=== PATIENT | male | born 1990 | race Caucasian/White ===

== ENCOUNTER 2020-10-24 18:33 | Emergency (ER) | payer OTHER, SELFPAY ==
[2020-10-24 18:42] VITALS: BP 139/92; PULSE 78; RESP 18; TEMP 37; O2SAT 98; BMI 29.7
[2020-10-24 19:47] VITALS: BP 129/77; PULSE 83; RESP 18; TEMP 36.4; O2SAT 99
[2020-10-24 19:58] LABS: Glucose Urine UA NEG (NEG); Leukocyte Esterase Urine NEG (NEG); Nitrite Urine NEG (NEG); Specific Gravity - Urine 1.025 (1.005-1.025); Urine Blood NEG (NEG); Urine Ketones NEG (NEG); Urine Protein NEG (NEG-TRACE)
[2020-10-24 19:59] LABS: Appearance Urine CLEAR; Color Urine YELLOW
--- NOTE | 2020-10-24 21:12 | ED_ITS ---
HPI - General Adult General Chief complaint: Nausea/Vomiting/Diarrhea Stated complaint: Nausea/ tightness in chest Time Seen by Provider: 10/24/20 20:50 Source: patient Mode of arrival: ambulatory Limitations: no limitations History of Present Illness HPI narrative: 30-year-old male who presents emergency department for evaluation of chest pain, nausea, vomiting. Patient states the past 3 days he has been experiencing chest pain. He points to his anterior chest when asked to localize the pain. Describes the pain is a pressure-like pain which is worse with movement. The patient states that he had 1 episode of vomiting. He states he has had persistent nausea for the past 3 days. He denies fever, chills, shortness of breath, dyspnea on exertion, myalgias, arthralgias, changes bowel movements. He states he did take ibuprofen yesterday with some relief his pain he states that his pain is 8/10 at its worse and he has not been able to work since his job is very physical. This is his 1st episode of this type of pain. Related Data Allergies Allergy/AdvReac Type Severity Reaction Status Date / Time No Known Allergies Allergy Verified 10/24/20 18:46 Review of Systems Review of Systems: Yes all other systems are reviewed and are negative [facility] Past Medical History [facility] Narrative: Past medical history: None. Past surgical history: The patient had a hernia repair when he was 11 years old. 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 He denies tobacco, alcohol and drug use. Medical History (Updated 10/24/20 @ 18:45 by Chel Gill) No acute medical problems Surgical History (Updated 10/24/20 @ 18:45 by Chel Gill) H/O hernia repair Social History Social History Advance Directives: No Advance Directives Information Provided: Yes Physical Exam Vital Signs: Vital Signs: Last Vital Signs Temp 97.6 F 10/24/20 19:47 Pulse 83 10/24/20 19:47 Resp 18 10/24/20 19:47 BP 129/77 10/24/20 19:47 Pulse Ox 99 10/24/20 19:47 Body Mass Index 29.7 Const: General: cooperative and healthy appearing Orientation/consciousness: oriented to person and oriented to place Limitations: no limitations HENMT: Head: Yes normal to inspection, Yes normocephalic and Yes atraumatic Ears: external ears normal General nose exam: Normal external nose present Face and sinus: Yes normal facial exam Mouth: Normal oral and palatal mucosa present Throat: Yes posterior oropharynx normal Eyes: Periorbital: periorbital findings normal Eyelids: Yes eyelids normal Conjunctivae: conjunctivae normal Sclerae: sclerae normal Corneas: corneas normal Pupils: Equal, round and reactive pupils present Direct Ophthalmoscopy: normal light reflex Neck: Neck: Yes full ROM, Yes no lymphadenopathy, Yes no meningeal signs, Yes trachea midline and Yes supple Chest: Chest palpation & inspection: normal inspection of the chest and tenderness sternum (Moderate) and costochondral junction (Bilateral, moderate) Resp: Effort & Inspection: normal respiratory effort and able to speak in complete sentences Auscultation: clear to auscultation bilaterally Cardio: Rate: regular rate Rhythm: regular rhythm Heart sounds: S1 normal heart sound present, S2 normal heart sound present and no murmurs GI: Inspection: Yes normal to inspection Palpation (GI): Soft to palpation, nontender, no guarding, not rigid and No hepatosplenomegaly present : General: Yes no CVA tenderness Back/Spine/Pelvis: Back: no CVA tenderness Cervical Spine: normal cervical lordosis Thoracic/Lumbar Spine: thoracic and lumbar spine normal to inspection Skin: Lesions: no lesions Rashes: no rashes Wounds: no wounds Neuro: General: oriented to person, oriented to place and no meningeal signs Cranial nerves: Yes CN's II-XII intact bilaterally and Yes Equal, round and reactive pupils present Cognition (Neuro): normal cognition Motor exam (neuro): 5/5 motor strength present throughout Extrem: General: Yes normal to inspection and Yes full ROM Psych: Appearance: well kempt Mental Status: mental status grossly normal Speech and movement: Normal speech and movement present Affect: normal affect Attitude: cooperative Thought process: Normal thought process present Thought content: Normal thought content present Course Course Course Narrative: 30-year-old male who presents emergency department for evaluation of chest pain x3 days, nausea with 1 episode of emesis. Vital signs were normal except for slight elevation is blood pressure of 139/92, repeat was normal. The patient's physical examination did reveal chest wall tenderness along the costochondral joints and sternum otherwise was unremarkable. The patient's physical examination and presentation consistent with acute costochondritis. Patient was given ibuprofen 600 mg orally and Zofran ODT 4 mg sublingually. The patient was discharged home. The patient was given verbal and printed instructions prior to discharge. The patient was advised to follow- up with their PCP in 2 days and to return to the emergency department if their symptoms get worse or if they develop any new symptoms that are concerning to them. Medical Decision Making Lab Data Labs: Lab Results 10/24/20 Range/Units 19:51 Urine Color YELLOW Urine Appearance CLEAR Urine pH 6.0 (5.0-8.0) Ur Specific [place] 1.025 (1.005-1.025) Urine Protein NEG (NEG-TRACE) MG/DL Urine Glucose (UA) NEG (NEG) MG/DL Urine Ketones NEG (NEG) MG/DL Urine Blood NEG (NEG) Urine Nitrite NEG (NEG) Ur Leukocyte Esterase NEG (NEG)
== END 2020-10-24 21:46 | disposition home or self-care (01) ==
PROVIDERS: Emergency Provider Emergency Medicine Emergency Medical Services
DX: R11.2 Nausea with vomiting, unspecified (principal); R07.9 Chest pain, unspecified
CPT/HCPCS: 81003; 99283; 99284

== ENCOUNTER 2021-01-28 12:18 | Emergency (ER) | payer OTHER, SELFPAY ==
--- NOTE | ~2021-01-28 | XR_ITS ---
EXAMINATION: XR CHEST CLINICAL INFORMATION: Chest pain, cough. COMPARISON: None TECHNIQUE: 2 views of the chest were obtained. FINDINGS: No significant abnormality is noted involving the heart, lungs, mediastinum, bony thorax or soft tissues. XR/XR chest 2V IMPRESSION: No acute cardiopulmonary process.
[2021-01-28 13:16] VITALS: BP 140/105; PULSE 99; RESP 18; TEMP 36.7; O2SAT 99; BMI 29.0
--- NOTE | 2021-01-28 13:17 | ED.URI ---
HPI - URI/Sore Throat General Chief Complaint: Upper Respiratory Symptoms <Julia Sosa NP - Last Filed: 01/28/21 18:47> Stated Complaint: cough, chest wall pain, fever, headache <Julia Sosa NP - Last Filed: 01/28/21 18:47> Time Seen by Provider: 01/28/21 13:16 <Julia Sosa NP - Last Filed: 01/28/21 18:47> Related Data Home Medications: Previous Rx's Medication Instructions Recorded ondansetron 4 mg disintegrating 4 mg PO Q6-8H PRN #14 tab 10/24/20 tablet albuterol sulfate 90 mcg/actuation 2 puff INHALATION Q4-6H PRN #8.5 g 01/28/21 aerosol inhaler <Julia Sosa NP - Last Filed: 01/28/21 18:47> Allergies/Adverse Reactions: Allergies Allergy/AdvReac Type Severity Reaction Status Date / Time No Known Allergies Allergy Verified 10/24/20 18:46 <Julia Sosa NP - Last Filed: 01/28/21 18:47> [facility] Past Medical History Medical History: Medical History No acute medical problems <Julia Sosa NP - Last Filed: 01/28/21 18:47> Surgical History: Surgical History (Updated 10/24/20 @ 18:45 by Chel Gill) H/O hernia repair <Julia Sosa NP - Last Filed: 01/28/21 18:47> Social History Social History: Social History Alcohol intake: never Patient Tobacco Use Status: Never used Tobacco Advance Directives: No <Julia Sosa NP - Last Filed: 01/28/21 18:47> Physical Exam Vital Signs: Vital Signs: Last Vital Signs Temp 98.0 F 01/28/21 13:16 Pulse 99 01/28/21 13:16 Resp 18 01/28/21 13:16 BP 140/105 H 01/28/21 13:16 Pulse Ox 99 01/28/21 13:16 Body Mass Index 29.0 <Julia Sosa NP - Last Filed: 01/28/21 18:47> Vital Signs: Last Vital Signs Temp 98.0 F 01/28/21 13:16 Pulse 99 01/28/21 13:16 Resp 18 01/28/21 13:16 BP 140/105 H 01/28/21 13:16 Pulse Ox 99 01/28/21 13:16 Body Mass Index 29.0 <MERLYN Roman - Last Filed: 01/28/21 18:06> Course Course Course Narrative: 1315-This is a rapid medical exam. 30 yo male here with cough, chest discomfort, subjective fevers since thursday. Vitals stable. Will check covid, chest-xray. Deferred HPI, ROS and PE to primary provider. <Julia Sosa NP - Last Filed: 01/28/21 18:47> MDM - URI/Sore Throat Lab Data Labs: Lab Results 01/28/21 01/28/21 Range/Units 14:31 16:50 Coronavirus (PCR) NEGATIVE (Negative) COVID-19 ([facility]) Negative (Negative) COVID-19 Clin Com See Note Influenza Type A (PCR) NEGATIVE (Negative) Influenza Type B (PCR) NEGATIVE (Negative) RSV RNA Qual (PCR) NEGATIVE (Negative) <Julia Sosa NP - Last Filed: 01/28/21 18:47> Lab Results 01/28/21 01/28/21 Range/Units 14:31 16:50 Coronavirus (PCR) NEGATIVE (Negative) COVID-19 ([facility]) Negative (Negative) COVID-19 Clin Com See Note Influenza Type A (PCR) NEGATIVE (Negative) Influenza Type B (PCR) NEGATIVE (Negative) RSV RNA Qual (PCR) NEGATIVE (Negative) <MERLYN Roman - Last Filed: 01/28/21 18:06> Discharge Plan Discharge Clinical Impression: Upper respiratory infection Qualifiers: URI type: unspecified viral URI Qualified Code(s): J06.9 - Acute upper respiratory infection, unspecified <Julia Sosa NP - Last Filed: 01/28/21 18:47> Patient Disposition: Home, Self-Care <Julia Sosa NP - Last Filed: 01/28/21 18:47> Instructions: Viral Syndrome (ED) <Julia Sosa NP - Last Filed: 01/28/21 18:47> Additional Instructions: Your COVID test your chest x-ray were negative today. Please use the albuterol inhaler, 2 puffs every 4 hours for the next 3-4 days. Please take ibuprofen, 800 mg every 8 hours. Please use salt water gargles, 1 tsp of salt in a cup of warm water 4 times a day. Please stay out of work for 2 days, returning . I want you to rest, drink fluids, and feel better. I will call you tonight if you are positive for flu. If you do not hear from me it means you do not have the flu. <Julia Sosa NP - Last Filed: 01/28/21 18:47> Prescriptions: New albuterol sulfate 90 mcg/actuation HFA aerosol inhaler 2 puff inhalation Q4-6H PRN (Reason: shortness of breath or wheezing) Qty: 8.5 RF: 0 No Action ondansetron 4 mg tablet,disintegrating 4 mg PO Q6-8H PRN (Reason: nausea and vomiting) Qty: 14 RF: 0 <Julia Sosa NP - Last Filed: 01/28/21 18:47> Stand Alone Forms: Work/School Release <Julia Sosa NP - Last Filed: 01/28/21 18:47> Interventions: ED Discharge Assessment Last Done: 01/28/21 17:09 <Julia Sosa NP - Last Filed: 01/28/21 18:47> Discharge Date/Time: 01/28/21 17:10 <Julia Sosa NP - Last Filed: 01/28/21 18:47>
[2021-01-28 14:59] LABS: COVID-19 Test Negative (Negative)
[2021-01-28 16:57] VITALS: O2SAT 99
[2021-01-28] MEDS: Albuterol Sulfate 90 MCG 8 GM INHALER 2 PUFF INHALE (16:57)
[2021-01-28] MEDS: Ibuprofen 800 MG TABLET PO (17:04)
[2021-01-28 17:36] LABS: Influenza A PCR NEGATIVE (Negative); Influenza B PCR NEGATIVE (Negative); Resp Syncy Virus RNA Qual PCR NEGATIVE (Negative); SARS COV2 PCR INHOUSE NEGATIVE (Negative)
--- NOTE | 2021-01-28 17:59 | ED.URI ---
HPI - URI/Sore Throat General Chief Complaint: Upper Respiratory Symptoms Stated Complaint: cough, chest wall pain, fever, headache Time Seen by Provider: 01/28/21 13:16 Source: patient Mode of arrival: ambulatory Limitations: no limitations History of Present Illness HPI Narrative: 30-year-old male presents for 3 days headache, nasal congestion, dry cough, sore throat, and a fever. Patient's fever only occurred the 1st day, 3 days ago, his sore throat is also better now. However he is coughing so much that his chest hurts. He is vaccinated for COVID. His daughter has been sick. MD elicited complaint: cough Onset (ago): day(s) (3) Consistency: constant Severity: severe Able to tolerate fluids by mouth: Yes Exacerbating factors: nothing Relieving factors: nothing Context: sick contacts Associated symptoms: headache, rhinorrhea, nasal congestion and sore throat Treatments prior to arrival: none Related Data Previous Rx's Medication Instructions Recorded ondansetron 4 mg disintegrating 4 mg PO Q6-8H PRN #14 tab 10/24/20 tablet albuterol sulfate 90 mcg/actuation 2 puff INHALATION Q4-6H PRN #8.5 g 01/28/21 aerosol inhaler Allergies Allergy/AdvReac Type Severity Reaction Status Date / Time No Known Allergies Allergy Verified 10/24/20 18:46 Review of Systems Constitutional: Constitutional: Denies body ache(s), Reports fatigue, Reports fever(s) and Reports headache(s) Eyes: Eyes: Denies blurry vision and Denies change in vision ENT: Denies otalgia, Reports headache(s), Reports nasal congestion, Reports nasal discharge, Denies sinus pressure, Reports sore throat and Denies throat swelling Cardiovascular: Cardiovascular: Denies chest pain, Denies lightheadedness, Denies dyspnea and Denies dyspnea on exertion Respiratory: Respiratory: Reports cough, Denies dyspnea and Denies dyspnea on exertion Gastrointestinal: Gastrointestinal: Denies abdominal pain, Denies constipation, Denies diarrhea and Denies nausea Genitourinary: Genitourinary: Reports no additional male genitourinary complaints Musculoskeletal: Musculoskeletal: Denies back pain Neurologic: Reports headache(s) Endocrine: Endocrine: Reports fatigue Allergic/Immunologic: Allergic/Immunologic: Denies throat swelling PMFSH Past Medical History Medical History No acute medical problems Surgical History (Updated 10/24/20 @ 18:45 by Chel Gill) H/O hernia repair Social History Social History Alcohol intake: never Patient Tobacco Use Status: Never used Tobacco Advance Directives: No Physical Exam Vital Signs: Vital Signs: Last Vital Signs Temp 98.0 F 01/28/21 13:16 Pulse 99 01/28/21 13:16 Resp 18 01/28/21 13:16 BP 140/105 H 01/28/21 13:16 Pulse Ox 99 01/28/21 13:16 Body Mass Index 29.0 Const: General: cooperative, no acute distress, well developed, alert and awake Nutritional Appearance: well nourished Orientation/consciousness: patient oriented x3 Limitations: no limitations HENMT: Head: Yes normal to inspection and Yes normocephalic Ears: hearing grossly normal bilaterally, TM's normal bilaterally and EAC's normal General nose exam: Normal external nose present Face and sinus: Yes sinuses nontender Mouth: Normal oral and palatal mucosa present and moist mucous membranes Throat: Yes posterior oropharynx abnormal (erythematous) Eyes: Other: Mildly injected conjunctiva Pupils: Equal, round and reactive pupils present Neck: Neck: Yes full ROM, Yes no lymphadenopathy and Yes supple Resp: Effort & Inspection: normal respiratory effort and able to speak in complete sentences Auscultation: clear to auscultation bilaterally, no crackles, no rales, no rhonchi and no wheezes Cardio: Rate: regular rate Rhythm: regular rhythm Heart sounds: S1 normal heart sound present and S2 normal heart sound present GI: Inspection: Yes normal to inspection Palpation (GI): Soft to palpation, nontender, no guarding and not rigid Percussion: Yes normal to percussion Auscultation: normal bowel sounds Skin: General skin exam: no rashes or lesions noted Neuro: General: patient oriented x3, tone normal and moves all extremities Cranial nerves: Yes Equal, round and reactive pupils present Extrem: General: Yes normal to inspection and Yes full ROM Psych: Appearance: grossly normal Affect: normal affect Attitude: cooperative Thought process: Normal thought process present Course Course Course Narrative: 30-year-old male presents with 3 days of upper respiratory symptoms. Patient has sore throat and fever have resolved. He continues to have a mild headache, nasal congestion, and a dry cough. Patient gets in coughing spells where he coughs so much his chest hurts. Daughter is sick at home. On exam, patient has lungs clear auscultation is ill-appearing oropharynx is mildly injected. Chest x-ray is normal, patient is COVID negative. Plan is to prescribe albuterol inhaler, certified alcohol counselor use ibuprofen, saltwater gargles, I did swab the patient for flu and send him home telling him and would call him as was positive. Influenza has come back negative. MDM - URI/Sore Throat Lab Data Labs: Lab Results 01/28/21 01/28/21 Range/Units 14:31 16:50 Coronavirus (PCR) NEGATIVE (Negative) COVID-19 ([facility]) Negative (Negative) COVID-19 Clin Com See Note Influenza Type A (PCR) NEGATIVE (Negative) Influenza Type B (PCR) NEGATIVE (Negative) RSV RNA Qual (PCR) NEGATIVE (Negative) Discharge Plan Discharge Clinical Impression: Upper respiratory infection Qualifiers: URI type: unspecified viral URI Qualified Code(s): J06.9 - Acute upper respiratory infection, unspecified Patient Disposition: Home, Self-Care Instructions: Viral Syndrome (ED) Additional Instructions: Your COVID test your chest x-ray were negative today. Please use the albuterol inhaler, 2 puffs every 4 hours for the next 3-4 days. Please take ibuprofen, 800 mg every 8 hours. Please use salt water gargles, 1 tsp of salt in a cup of warm water 4 times a day. Please stay out of work for 2 days, returning . I want you to rest, drink fluids, and feel better. I will call you tonight if you are positive for flu. If you do not hear from me it means you do not have the flu. Prescriptions: New albuterol sulfate 90 mcg/actuation HFA aerosol inhaler 2 puff inhalation Q4-6H PRN (Reason: shortness of breath or wheezing) Qty: 8.5 RF: 0 No Action ondansetron 4 mg tablet,disintegrating 4 mg PO Q6-8H PRN (Reason: nausea and vomiting) Qty: 14 RF: 0 Stand Alone Forms: Work/School Release Interventions: ED Discharge Assessment Last Done: 01/28/21 17:09 Discharge Date/Time: 01/28/21 17:10
== END 2021-01-28 17:10 | disposition home or self-care (01) ==
PROVIDERS: Nurse Practitioner Family; Physician Assistant; Emergency Provider Student in an Organized Health Care Education/Training Program
DX: J06.9 Acute upper respiratory infection, unspecified (principal); R05.9 Cough, unspecified; R51.9 Headache, unspecified; Z20.822 Contact with and (suspected) exposure to COVID-19; Z79.899 Other long term (current) drug therapy
CPT/HCPCS: 0241U; 36415; 71046; 87635; 94640; 99283; 99284

== ENCOUNTER 2024-03-28 11:36 | Emergency (ER) | payer MEDICAID, SELFPAY ==
--- NOTE | ~2024-03-28 | US_ITS ---
EXAMINATION: US TRIPLEX LOWER EXTREMITY, RIGHT CLINICAL INFORMATION: Right calf pain and swelling COMPARISON: None available. TECHNIQUE: Color-flow triplex imaging with spectral analysis and compression Doppler were performed on the right lower extremity. FINDINGS: Respiratory variation, normal compression and augmented flow are noted throughout the right lower extremity. The visualized common femoral vein, superficial femoral vein, profunda femoral vein, popliteal vein and midcalf peroneal and posterior tibial venous segments show no evidence of deep venous thrombosis. There is no Braga's cyst. US/US venous duplex LE RT IMPRESSION: No evidence of deep venous thrombosis involving the right lower extremity. Electronically signed by: Garo Wagner MD 03/28/2024 02:18 PM EST
[2024-03-28 11:44] VITALS: BP 110/77; PULSE 74; RESP 16; TEMP 36.3; O2SAT 99; BMI 30.7
--- NOTE | 2024-03-28 11:47 | ED_ITS ---
HPI - General Adult General Chief complaint: Extremity Injury, Lower Stated complaint: leg swollen and purple Time Seen by Provider: 03/28/24 13:50 Source: patient Mode of arrival: ambulatory Limitations: no limitations History of Present Illness ED Provider: Carlos A Rodríguez HPI narrative: 33-year-old male presents to ED for 2 months of right leg/calf pain swelling without any trauma. Patient denies any chest pain or shortness of breath. Patient denies any fever or chills. Patient denies any recent long travel or surgery. Related Data Previous Rx's ?Medication ?Instructions ?Recorded ondansetron 4 mg disintegrating 4 mg PO Q6-8H PRN nausea and 10/24/20 tablet vomiting #14 tabs albuterol sulfate 90 mcg/actuation 2 puff inhalation Q4-6H PRN 01/28/21 aerosol inhaler shortness of breath or wheezing #8.5 grams Allergies Allergy/AdvReac Type Severity Reaction Status Date / Time No Known Allergies Allergy Verified 03/28/24 11:51 Review of Systems 2 Review of Systems: Right leg calf swelling Yes all other systems are reviewed and are negative [facility] Past Medical History Medical History No acute medical problems Surgical History (Updated 10/24/20 @ 18:45 by Chel Gill) H/O hernia repair Social History Social History Alcohol intake: never Patient Tobacco Use Status: Never used Tobacco Advance Directives: No Advance Directives Information Provided: No Do you have a plan to hurt others: No Plan Physical Exam ED Vital Signs: Vital Signs - 24 hr 03/28/24 11:44 03/28/24 15:09 03/28/24 15:10 Temperature 97.4 F 98.8 F 98.8 F Pulse Rate 74 73 73 Respiratory Rate 16 12 12 Blood Pressure 110/77 126/74 126/74 Pulse Oximetry 99 98 98 Oxygen Delivery Method Room Air Room Air Room Air BMI result Body Mass Index 30.7 Const General: cooperative, healthy appearing, comfortable, no acute distress, well developed, alert, awake and Physically active Orientation/consciousness: patient oriented x3 HENMT Head: Yes normal to inspection, Yes No palpable skull fracture present, Yes normocephalic and Yes atraumatic Eyes General: appearance normal, both eyes and all related structures Neck Neck: Yes normal visual inspection, Yes full ROM, Yes no lymphadenopathy, Yes no meningeal signs, Yes trachea midline, Yes supple, No anterior neck swelling and No tender Chest Chest palpation & inspection: normal inspection of the chest and normal palpation of entire chest wall Resp Effort & Inspection: normal respiratory effort and able to speak in complete sentences Cardio Jugular venous distension: no JVD Heart sounds: S1 normal heart sound present and S2 normal heart sound present GI Inspection: Yes normal to inspection Palpation (GI): Soft to palpation, not firm, nontender, no guarding and not rigid General: Yes no CVA tenderness Back/Spine/Pelvis Back: no CVA tenderness and No back tenderness Skin General skin exam: no rashes or lesions noted, elasticity normal and turgor normal Neuro General: patient oriented x3, gait normal, tone normal, moves all extremities, Normal light touch and pain sensation, no meningeal signs, no focal motor deficits and CN's II-XI intact bilaterally Extrem Other: RLE: Right lower extremity positive for swelling and pitting edema at calf area. Negative for tenderness or bluish black discoloration. Negative for hard mass. Negative for red streaks. Vascular motor neuro exam intact. Venous stasis skin changes. negative for warmth or erythema, tenderness, or mass. LLE: normal. motor, neuro, and vascular exam is intact. General: Yes normal to inspection, Yes full ROM and Yes capillary refill normal Psych Appearance: grossly normal, well kempt and not disheveled Course Course Course Narrative: This is an RME: Additional HPI, ROS, PE not included below will be deferred to primary provider. RME assessment and note performed by: Belen Reid PA-C This is a 88-dtpt-[age]cy-male who presents to the ER with complaints of right calf pain and swelling x 2 month. Pt with 1+ pitting edema noted on the right. TTP in the right calf. No CP/SOB, no other complaints or concerns at this time. Plan: Labs, US, further ER eval needed Medical Decision Making Medical Decision Making MDM Narrative: 33-year-old male presents to ED for right lower extremity calf swelling for the past 2 months without any trauma. Patient states no pain in the area. Patient denies any chest pain, shortness of breath, recent long travel, recent surgery, or pleurisy. Physical exam negative for signs of compartment syndrome, dislocation, fracture, cellulitis, hematoma, osteomyelitis, cellulitis, septic joint, PE, myocardial infarction, CHF, erythema nosodum, or any other life- threatening etiology. Patient informed to follow-up with primary care provider as outpatient follow-up. Patient explained worrisome signs and informed to return to the ED immediately. Differential Diagnosis Differential Diagnoses: The differential diagnosis associated with the presentation includes (DVT) Admission/Observation Consideration of admission/observation: Escalation of care including admission/observation considered Lab Data MDM Lab Attestation statement: I reviewed the patient's lab results. 03/28/24 12:16 12 12:16 Labs: Lab Results 03/28/24 Range/Units 12:16 WBC 6.6 (4.8-10.8) X10*3/uL RBC 5.37 (4.60-5.80) X10*6/uL Hgb 14.7 (14.0-18.0) g/dl Hct 44.7 (42.0-52.0) % MCV 83.2 (80.0-98.0) fL MCH 27.4 (27.0-33.0) pg MCHC 32.9 (31.0-36.0) g/dl RDW 12.9 (11.0-16.0) % Plt Count 300 (160-400) X10*3/uL MPV 9.1 L (9.4-12.4) fL Immature Gran % (Auto) 0.2 (0.0-0.4) % Neut % (Auto) 54.8 (45-73) % Lymph % (Auto) 31.0 (20-40) % [place] % (Auto) 8.5 (2-11) % Eos % (Auto) 4.9 H (0-4) % Baso % (Auto) 0.6 (0-2) % Lymph # (Auto) 2.0 (1.2-4.9) X10*3/uL [place] # (Auto) 0.6 (0.1-1.2) X10*3/uL Eos # (Auto) 0.3 (0.0-0.4) X10*3/uL Baso # (Auto) 0.0 (0.0-0.2) X10*3/uL Abs Immat Gran (auto) 0.01 (0.00-0.03) X10*3/uL Absolute Neuts (auto) 3.6 (2.0-8.3) x10*3/uL Absolute Nucleated RBC 0.000 (0.0-0.012) X10*3/uL Nucleated RBC % (auto) 0.0 (0.0-0.2) /100WBC PT 11.5 (10.9-12.4) SEC INR 1.0 (0.9-1.1) APTT 31.7 (26.0-36.8) SEC Sodium 141 (135-145) mmol/L Potassium 4.3 (3.3-5.1) mmol/L Chloride 106 (96-108) mmol/L Carbon Dioxide 29 (22-29) mmol/L Anion Gap 10 L (12-20) BUN 14 (9-16) mg/dL Creatinine 0.85 (0.5-1.4) mg/dL Estim Creat Clear Calc 126.0 Estimated GFR > 60 Random Glucose 97 (60-115) mg/dL Calcium 9.8 (8.4-10.2) mg/dL Total Bilirubin 0.5 (0.0-1.0) mg/dL AST 41 H (5-37) U/L ALT 61 H (0-40) U/L Alkaline Phosphatase 67 (39-117) U/L B-Natriuretic Peptide 36 (<100) pg/mL Total Protein 7.7 (6.5-8.0) g/dL Albumin 4.5 (3.5-5.0) g/dL Independent Interpretation I performed an independent interpretation of an: Ultrasound Radiology Impression Discussion of test interpretation with radiology: I have reviewed the radiologist's reading. Independent Historian Clinical information obtained from an independent historian. History obtained from or confirmed by: Other (Patient) External Record Review External record reviewed: Other (Prior visits) Discharge Plan Discharge Clinical Impression: Leg edema Patient Disposition: Home, Self-Care Instructions: Leg Edema (ED) Additional Instructions: Recommend follow-up with primary care provider. Return to the ED immediately for any worsening swelling, bluish black discoloration, redness, chest pain, shortness of breath, fever, chills, weakness, dizziness, red streaks, or any other concerning symptoms. Recommend elevating your legs when sitting down and also use compression stockings US/US venous duplex LE RT IMPRESSION: No evidence of deep venous thrombosis involving the right lower extremity. Electronically signed by: Garo Wagner MD 03/28/2024 02:18 PM [facility] [place] Dictated By: Garo Wagner MD Signed By: <Electronically signed by Garo Wagner MD in OV> 03/28/24 1418 Prescriptions: No Action ondansetron 4 mg tablet,disintegrating 4 mg PO Q6-8H PRN (Reason: nausea and vomiting) Qty: 14 0RF albuterol sulfate 90 mcg/actuation HFA aerosol inhaler 2 puff inhalation Q4-6H PRN (Reason: shortness of breath or wheezing) Qty: 8.5 0RF Referrals: [facility] [place] Primary Care, Rosario [Provider Group] (Right leg edema) [facility] [place] Primary Care,Jeremiah [Provider Group] (Right leg edema) Stand Alone Forms: Work/School Release Interventions: ED Discharge Assessment Last Done: 03/28/24 15:10 Discharge Date/Time: 03/28/24 15:10 Print Language: Chinese
[2024-03-28 12:20] LABS: MANUAL DIFF FLAG NO
[2024-03-28 12:23] LABS: Basophils Percent Auto 0.6 % (0-2); Eosinophils Absolute Auto 0.3 X10*3/uL (0.0-0.4); Eosinophils Percent Auto 4.9 % (0-4); Hematocrit 44.7 % (42.0-52.0); Hemoglobin 14.7 g/dl (14.0-18.0); Imm Gran Abs Auto 0.01 X10*3/uL (0.00-0.03); Imm Gran Pct Auto 0.2 % (0.0-0.4); Mean Corpuscular HGB Conc 32.9 g/dl (31.0-36.0); Mean Corpuscular Hemoglobin 27.4 pg (27.0-33.0); Mean Corpuscular Volume 83.2 fL (80.0-98.0); Mean Platelet Volume 9.1 fL (9.4-12.4); Monocytes Absolute Auto 0.6 X10*3/uL (0.1-1.2); Monocytes Percent Auto 8.5 % (2-11); Neutrophils Absolute Auto 3.6 x10*3/uL (2.0-8.3); Neutrophils Percent Auto 54.8 % (45-73); Platelet Count 300 X10*3/uL (160-400); Red Blood Count 5.37 X10*6/uL (4.60-5.80); Red Cell Distribution Width 12.9 % (11.0-16.0); White Blood Count 6.6 X10*3/uL (4.8-10.8)
[2024-03-28 12:32] LABS: Prothrombin Time 11.5 SEC (10.9-12.4)
[2024-03-28 12:35] LABS: Alanine Aminotransferase 61 U/L (0-40); Albumin Level 4.5 g/dL (3.5-5.0); Alkaline Phosphatase 67 U/L (39-117); Anion Gap 10 (12-20); Aspartate Amino Transferase 41 U/L (5-37); Bilirubin Total 0.5 mg/dL (0.0-1.0); Blood Urea Nitrogen 14 mg/dL (9-16); Calcium 9.8 mg/dL (8.4-10.2); Carbon Dioxide 29 mmol/L (22-29); Chloride 106 mmol/L (96-108); Estimated Glomerular Filt Rate > 60; Glucose Random 97 mg/dL (60-115); Partial Thromboplastin Time 31.7 SEC (26.0-36.8); Potassium 4.3 mmol/L (3.3-5.1); Sodium 141 mmol/L (135-145); Total Protein 7.7 g/dL (6.5-8.0)
[2024-03-28 12:41] LABS: B Type Natriuretic Peptide 36 pg/mL (<100)
--- NOTE | 2024-03-28 13:42 | PC.NURSE ---
ultrasound being completed at this time.
[2024-03-28 15:09] VITALS: BP 126/74; PULSE 73; RESP 12; TEMP 37.1; O2SAT 98
[2024-03-28 15:10] VITALS: BP 126/74; PULSE 73; RESP 12; TEMP 37.1; O2SAT 98
== END 2024-03-28 15:10 | disposition home or self-care (01) ==
PROVIDERS: Physician Assistant Medical; Emergency Provider Emergency Medicine
DX: R60.0 Localized edema (principal); Z79.899 Other long term (current) drug therapy
CPT/HCPCS: 36415; 80053; 83880; 85025; 85610; 85730; 93971; 99282; 99284